=== PATIENT | female | born 1975 | race African-American/Black ===

== ENCOUNTER 2016-11-09 17:03 | Emergency (ER) | payer OTHER ==
[~2016-11-09] VITALS: Ht 175.3 cm; Wt 101.4 kg
[2016-11-09 17:06] VITALS: BP 140/90; PULSE 86; RESP 16; O2SAT 100
--- NOTE | 2016-11-09 18:18 | ED.REPORT ---
HPI-Preg Under 20 Weeks Date of Service Nov 09, 2016 ED Provider: Desi Foley History of Present Illness: blood in urine this afternoon. numbers have doing well. RH negative. corrina saw on Monday, spoke with him on Monday. light pink in color. 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 Ambulatory Status Independent Review of Systems Basic Review of Systems ENT: Hearing NL Psychiatric: Normal thought content Physical Exam Initial Vital Signs Vital Signs (First) Date Time Temp Pulse Resp B/P Pulse Ox O2 Delivery O2 Flow Rate FiO2 11/09/16 17:06 36.6 86 16 140/90 100 Room Air Initial VS: Reviewed, Vital signs normal Head / Eyes: Atraumatic, Normocephalic, PERRL ENT: Mucous membranes moist, Conjunctiva normal, No scleral icterus Neck: Supple, Non-tender, Full range of motion Respiratory: Breath sounds normal, Clear to auscultation, No respiratory distress Cardiovascular: Regular rate & rhythm, Heart sounds normal, Intact distal pulses Back: No CVA tenderness Lymphatic: No lymphadenopathy Extremities: Vascular intact, Neuro intact, No swelling, No tenderness Skin: Warm, Dry, No cyanosis Neurologic: Alert, Oriented, Nonfocal Psychiatric: Mood/affect normal, Behavior normal, Normal thought content General/Constitutional: Awake, Alert, No acute distress, Well appearing, Well developed, Well hydrated Abdomen: Atraumatic, Soft, Non-tender Female Genitourinary: Exam deferred Respiratory / Chest: Atraumatic, Breath sounds NL, Breath sounds = bilat, No respiratory distress Cardiovascular: Heart rate NL, Regular rhythm, Heart sounds NL, No gallop Interpretation & Diagnostics Lab Results Interpretation Result Diagram: 11/09/16199911/09/161999 Test 11/09/16 17:35 11/09/16 18:35 11/09/16 20:00 Hold Urine Received (Received) Urine Color Yellow (YELLOW) Urine Appearance Hazy (CLEAR,HAZY) Urine pH 6.0 (5.0-8.0) Urine Specific [place] 1.010 (1.003-1.035) Urine Protein Negativemg/dL (NEG,TRACE) Urine Glucose (UA) Negativemg/dL (NEGATIVE) Urine Ketones Negativemg/dL (NEGATIVE) Urine Occult Blood Large (NEGATIVE) Urine Nitrite Negative (NEGATIVE) Urine Bilirubin Negative (NEGATIVE) Urine Urobilinogen Normalmg/dL (NORMAL) Urine Leukocyte Esterase Negative (NEGATIVE) Urine RBC 0-2/hpf (0-2) Urine WBC 0-5/hpf (0-5) Urine Epithelial Cells Moderate/hpf (NONE-MOD) Urine Crystals None seen (NONE SEEN) Urine Bacteria Few/hpf (NONE-FEW) Urine Hyaline Casts None/lpf (NONE) Urine Granular Casts None seen (NONE SEEN) Urine Waxy Casts None seen (NONE SEEN) Urine Red Blood Cell Casts None seen (NONE SEEN) Urine White Blood Cell Casts None seen (NONE SEEN) Urine Mucus None seen (None Seen) Urine Trichomonas None seen (NONE SEEN) Urine Yeast None (NONE SEEN) Urinalysis Comment None Urine Culture Reflexed Not indicated White Blood Count 8.6th/mm3 (3.8-10.1) Red Blood Count 4.88mil/mm3 (3.90-5.20) Hemoglobin 10.9g/dL (12.0-15.6) Hematocrit 33.9% (35.0-46.0) Mean Corpuscular Volume 69.5fL (81-100) Mean Corpuscular Hemoglobin 22.3pg (27.0-35.0) Mean Corpuscular Hemoglobin Concent 32.2% (32.0-37.0) Red Cell Distribution Width 21.6% (12.3-15.4) Platelet Count 289bil/L (150-400) Neutrophils (%) (Auto) 54.4% (40-74) Lymphocytes (%) (Auto) 34.6% (14-46) Monocytes (%) (Auto) 6.6% (4-12) Eosinophils (%) (Auto) 3.8% (0-5) Basophils (%) (Auto) 0.5% (0-3) Sodium Level 137mEq/L (134-144) Potassium Level 3.7mEq/L (3.5-5.2) Chloride Level 100mEq/L (97-108) Carbon Dioxide Level 22mmol/L (18-29) Blood Urea Nitrogen 10mg/dL (6-20) Creatinine 0.70mg/dL (0.57-1.00) Estimat Glomerular Filtration Rate 120mL/min (>59) Glucose Level 89mg/dL (60-99) Calcium Level 9.2mg/dL (8.5-10.1) Total Bilirubin 0.5mg/dL (0.0-1.2) Aspartate Amino Transf (AST/SGOT) 20U/L (0-50) Alanine Aminotransferase (ALT/SGPT) 16U/L (0-32) Alkaline Phosphatase 57U/L (25-150) Total Protein 6.9g/dL (6.4-8.4) Albumin 4.0g/dL (3.4-5.0) HCG Beta Subunit [id number]/mL Hold Talavera Top Tube Received (Received) US Focused OB US does show a pole with a heart rate of 119 Re-Eval/Medical Decision Med Decision/Clinical Course 40 year old female presentd for evualtion of first trimester spotting. Labs are normal. Ultrasound shows a heart rate of 119. Discussed with Dr. Moreno, patient to call tomorrow for follow up. provided mini rhogam Discharge & Departure Primary Impression: Spotting affecting in first trimester Disposition: Home Additional Instructions: The ultrasound does show a pole with a heart rate of 119. It also shows a perigestational bleed. You have been given a mini rhogam injection [place] [address] Roche for follow up. Return with any concerns. Referrals: Jeanne Ruelas MD (PCP) Mikel Moreno MD EDSupervising Provider for APC: Basilio Escudero MD copies to: Mikel Moreno MD, Sue ARNP Nov 09, 2016 18:18
[2016-11-09 18:51] LABS: APPEARANCE,URINE HAZY (CLEAR,HAZY); COLOR,URINE YELLOW (YELLOW); OCCULT BLOOD,URINE LARGE (NEGATIVE); UROBILINOGEN,URINE NORMAL (NORMAL)
[2016-11-09 20:14] LABS: BASOPHILS % (AUTO) 0.5 % (0-3); EOSINOPHILS % (AUTO) 3.8 % (0-5)
[2016-11-09 20:17] LABS: MONOCYTES % (AUTO) 6.6 % (4-12); Mean Corpuscular Hemoglobin 22.3 pg (27.0-35.0); Mean Corpuscular Volume 69.5 fL (81-100); NEUTROPHILS % (AUTO) 54.4 % (40-74); Platelet Count 289 bil/L (150-400)
[2016-11-09] MEDS ORDERED: Rho(D) Immune Globulin 50 mCg Syringe IM ONE (21:05)
[2016-11-09 22:00] VITALS: BP 112/77; PULSE 80; RESP 20; O2SAT 96
--- NOTE | 2016-11-10 09:14 | DRSVH ---
PROCEDURE: US OB<14 WKS+OB TRANSVAG INDICATIONS: bleeding today OUTSIDE/PRIOR DATING DATA: Last menstrual period (LMP): 09/21/16. LMP-based estimated date of delivery (RETA): 06/28/17. First dating scan (date and location): 11/03/16. Estimated date of delivery (ERTA) from first dating scan: 06/24/17.. TECHNIQUE: Real-time scanning was performed of the fetus and maternal pelvic organs, with image documentation. Endovaginal scanning was also performed to better visualize the fetus and maternal ovaries. COMPARISON: [facility] Ultrasound, US, US OB<14 WKS+OB TRANSVAG, 11/03/2016, 9:37. 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 Mild irregularity involving the gestational sac with echogeni c focus which may represent a small bleed. There also is a small avinash-gestational sac bleed measurin g 2.2 x 0.8 x 1.9 cm Measurement variability in dating: +/- 4 weeks by LMP, +/- 7 days by mean sac diameter (use before 6 weeks gestation if crown-rump length not able to be measured), +/- 5 days by crown-rump length (6-12 weeks gestation). Maternal organs: Calcification adjacent to the left ovary redemonstrated. Calcified fibroid present measuring 2.4 x 2.1 x 2.1 cm IMPRESSION: 1. 6 week 1 day single living IUP. 2. Small echogenic focus present which may represent a small bleed versus gestational sac irregulari ty and there also is a small perigestational sac bleed present. Followup recommended. 3. Calcification adjacent to the left ovary redemonstrated. Followup is recommended. Dictated by: Eduardo BENNETT Interpreted: Li Ferguson MD on 11/10/2016 at 9:06 Transcribed by: FATUMA on 11/10/2016 at 9:13 Approved by: Li Ferguson MD, PhD on 11/10/2016 at 16:49
[2016-12-13] MEDS ORDERED: FERR325T39 PO (16:30)
[2016-12-13] MEDS ORDERED: HYDR-4003 PO (16:30)
== END 2016-11-09 22:00 | disposition home or self-care (01) ==
LOC: SED 17:03
DX: O26.851 Spotting complicating pregnancy, first trimester (principal); Z3A.01 Less than 8 weeks gestation of pregnancy; Z88.0 Allergy status to penicillin
CPT/HCPCS: 36415; 76801; 76817; 80053; 81000; 81025; 84702; 85025; 96372; 99284; J2788

== ENCOUNTER 2016-11-13 17:24 | Emergency (ER) | payer OTHER ==
[~2016-11-13] VITALS: Ht 175.3 cm; Wt 100.0 kg
[2016-11-13 17:25] VITALS: BP 120/79; PULSE 88; RESP 12; O2SAT 100
--- NOTE | 2016-11-13 19:53 | PCM.EDPN ---
ED Note Date of Service Nov 13, 2016 This patient was assigned to me though I never saw her. test and the urine is positive urinalysis is negative for overt UTI. Jose Maria Platt MD Nov 13, 2016 19:53
[2016-12-13] MEDS ORDERED: HYDR-4003 PO (16:30)
[2016-12-13] MEDS ORDERED: FERR325T39 PO (16:30)
== END 2016-11-13 19:27 | disposition left against medical advice (07) ==
LOC: SED 17:24
DX: Z53.21 Procedure and treatment not carried out due to patient leaving prior to being seen by health care provider (principal)

== ENCOUNTER 2016-11-25 08:14 | Emergency (ER) | payer OTHER ==
[~2016-11-25] VITALS: Ht 175.3 cm; Wt 102.3 kg
[2016-11-25 08:19] VITALS: BP 115/70; PULSE 84; RESP 14; O2SAT 100
--- NOTE | 2016-11-25 08:29 | ED.REPORT ---
HPI-Preg Under 20 Weeks Date of Service Nov 25, 2016 ED Provider: Smair Pop DO The patient is a 40 year old female who presents to the female due to one episode of vaginal bleeding earlier this morning. She is in her first trimester of , estimated 11 weeks. She woke up this morning, urinated, wiped herself and saw a quarter sized clot of blood. Yesterday evening she felt a sharp pain across her lower abdomen and currently complains of mild lower back pain. She was recently diagnosed with vaginitis and the medication she was on made her nauseous and vomit. She couldn't keep any food down. She stopped taking the medicine last night. She has bilateral ovarian cysts. She had her first OB appointment on Monday and the baby's heartbeat was 171. At this time, a placenta previa was found. She denies dysuria and hematuria. This is her 5th , all previous pregnancies have been healthy and full term. Nursing Notes Stated Complaint: 11 WKS AND BLEEDING Chief Complaint: Female Abdominal Pain Nursing Notes Reviewed: Yes Allergies: Coded Allergies: Penicillins (Verified Allergy, Severe, chest tightness, 11/13/16) Scheduled Clindamycin (Clindamycin) 300 Mg Capsule 300 MG PO BID General Time Seen by Provider: 08:20 Chief Complaint Vaginal bleeding Context: : Known 1st trim Hx Obtained From: Patient Arrived By: Walk-in Onset Occurred: Yesterday Symptom Duration: Since onset Quality: Painful, Sharp Radiation: : Abdomen lower Severity: Current: No pain currently Recent Healthcare: Recent doctor visit Past Medical History Past Medical History ovarian cysts placenta previa Past Surgical History denies Smoking History Never Smoker Social History Alcohol Use: Denies alcohol use Drug Use: Denies drug use 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 Physical Exam Initial Vital Signs Vital Signs (First) Date Time Temp Pulse Resp B/P Pulse Ox O2 Delivery O2 Flow Rate FiO2 11/25/16 08:19 36.8 84 14 115/70 100 Room Air Initial VS: Reviewed Head / Eyes: Atraumatic, Normocephalic, PERRL ENT: Mucous membranes moist, Conjunctiva normal Respiratory: Breath sounds normal, Clear to auscultation, No respiratory distress Cardiovascular: Regular rate & rhythm, Heart sounds normal, Intact distal pulses Extremities: Vascular intact, Neuro intact, No swelling, No tenderness Skin: Warm, Dry General/Constitutional: Awake, Alert, Cooperative, Not toxic appearing Abdomen: Atraumatic, Soft, Non-tender, No guarding, No rebound Female Genitourinary: Exam deferred : movement present Interpretation & Diagnostics Lab Results Interpretation Test 11/25/16 09:25 Urine Color Dark yellow (YELLOW) Urine Appearance Hazy (CLEAR,HAZY) Urine pH 5.5 (5.0-8.0) Urine Specific [place] 1.030 (1.003-1.035) Urine Protein Negativemg/dL (NEG,TRACE) Urine Glucose (UA) Negativemg/dL (NEGATIVE) Urine Ketones Negativemg/dL (NEGATIVE) Urine Occult Blood Large (NEGATIVE) Urine Nitrite Negative (NEGATIVE) Urine Bilirubin Negative (NEGATIVE) Urine Urobilinogen Normalmg/dL (NORMAL) Urine Leukocyte Esterase Trace (NEGATIVE) Urine RBC 0-2/hpf (0-2) Urine WBC 0-5/hpf (0-5) Urine Epithelial Cells Moderate/hpf (NONE-MOD) Urine Crystals None seen (NONE SEEN) Urine Bacteria Few/hpf (NONE-FEW) Urine Hyaline Casts None/lpf (NONE) Urine Granular Casts None seen (NONE SEEN) Urine Waxy Casts None seen (NONE SEEN) Urine Red Blood Cell Casts None seen (NONE SEEN) Urine White Blood Cell Casts None seen (NONE SEEN) Urine Mucus Present (None Seen) Urine Trichomonas None seen (NONE SEEN) Urine Yeast None (NONE SEEN) Urinalysis Comment None Urine Culture Reflexed Indicated Re-Eval/Medical Decision Med Decision/Clinical Course Single episode of a single vaginal blood clot, no signs of urinary tract infection, no ongoing pain, benign abdominal exam, reassuring vital signs, patient is Rh- however has had a very recent RhoGAM injection and does not seem like it is indicated again. Bedside ultrasound was performed as the nurse was not able to find heart tones, I think this is identified within the uterus with positive heart tones. Overall this may be a threatened miscarriage, patient has had all questions answered, reassurance and education given. Return and follow-up precautions given as well. It should be noted that she was treated with Flagyl for BV and developed severe nausea, this was switched over to clindamycin 300 mg twice a day prescribed during this visit. Re-Evaluation/Progress : Time of Eval: 09:05 Re-Evaluation/Progress Note: Bedside ultrasound performed. No acute findings. Counseled Regarding: Diagnosis, Lab results, Need for follow-up, When/why to return to ED Discharge & Departure Primary Impression: Threatened miscarriage in early Disposition: Home Discharge Condition All VS Reviewed: Yes Condition: Stable Additional Instructions: We can see that your baby is in the uterus and that it has a heartbeat on ultrasound. However, we cannot exclude that this is very very early signs of an impending miscarriage. For this reason we call it a threatened miscarriage. I am sending you home with a prescription for clindamycin, 300 mg 2x/day, to help with your bacterial vaginosis. There are potential side effects, but generally it is well tolerated. If you are having diarrhea or a high fever, discontinue the antibiotic use. 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 Return to the Emergency Department for any new or worsening symptoms. Congratulations on your ! Referrals: Jeanne Ruelas MD (PCP) Scribe Attestation Portion of this note were transcribed by Soraya Kelly. I, Dr. Pop, personally performed the history, physical exam, and medical decision-making: I reviewed and confirmed the accuracy for the information in the transcribed note. Signed by: shyann Crabtree, 11/25/16 1000 copies to: Jeanne Ruelas MD, Timothy S DO Nov 25, 2016 08:29 Soraya Kelly Nov 25, 2016 08:45
[2016-11-25] MEDS ORDERED: CLIN-78 PO (09:33)
[2016-11-25 09:50] LABS: APPEARANCE,URINE HAZY (CLEAR,HAZY); COLOR,URINE DARK YELLOW (YELLOW); PH,URINE 5.5 (5.0-8.0)
[2016-11-25 09:51] LABS: OCCULT BLOOD,URINE LARGE (NEGATIVE); UROBILINOGEN,URINE NORMAL (NORMAL)
[2016-12-13] MEDS ORDERED: HYDR-4003 PO (16:30)
[2016-12-13] MEDS ORDERED: FERR325T39 PO (16:30)
== END 2016-11-25 10:13 | disposition home or self-care (01) ==
LOC: SED 08:14
DX: O20.0 Threatened abortion (principal); Z3A.11 11 weeks gestation of pregnancy; Z88.0 Allergy status to penicillin

== ENCOUNTER 2016-11-28 07:27 | Emergency (ER) | payer OTHER ==
[~2016-11-28] VITALS: Ht 175.3 cm; Wt 100.0 kg
[~2016-11-28 07:27] MED LIST: CLIN-78 PO
[2016-11-28 07:30] VITALS: BP 128/86; PULSE 87; RESP 18; O2SAT 100
--- NOTE | 2016-11-28 07:35 | ED.REPORT ---
HPI-Preg Under 20 Weeks Date of Service Nov 28, 2016 ED Provider: Dr. 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 Associated symptoms include gas, cramping and abdominal pain, headache, lightheaded. Pt says she believe she has had a miscarriage. She woke up at 0200 due to cramping and bleeding, went to the bathroom and passed excessive blood and a small sac of tissue which she brought into the ED with her. She is known RH negative and has had a Rhogam shot recently. The bleeding has improved at the ED. She had a miscarriage 2 years ago, and reports that there is much more bleeding with this miscarriage. Pt was seen at the ED 3 days ago for vaginal spotting and a threatened miscarriage. Nursing Notes Stated Complaint: POSSIBLE MISCARRIAGE Chief Complaint: Female Abdominal Pain Nursing Notes Reviewed: Yes Allergies: Coded Allergies: Penicillins (Verified Allergy, Severe, chest tightness, 11/13/16) Scheduled Clindamycin (Clindamycin) 300 Mg Capsule 300 MG PO BID General Time Seen by Provider: 07:49 Chief Complaint Vaginal bleeding Context: : Known 1st trim Hx Obtained From: Patient Arrived By: Walk-in Onset Occurred: Just prior to arrival Symptom Duration: Since onset Location: : Abdomen lower Quality: Painful Severity: Current: No pain currently Severity: Maximum: Mild Recent Healthcare: Recent doctor visit Similar Sx Previous: Yes Past Medical History Past Medical History ovarian cysts placenta previa known RH negative and has had a Mark shot recently (11/28/16) Past Surgical History denies Smoking History Never Smoker Social History Alcohol Use: Denies alcohol use Drug Use: Denies drug use Other Social History: Good social support, 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 Physical Exam Physical Exam Notes: Initial Vital Signs Vital Signs (First) Date Time Temp Pulse Resp B/P Pulse Ox O2 Delivery O2 Flow Rate FiO2 11/28/16 07:30 36.3 87 18 128/86 100 11/28/16 09:42 Room Air Initial VS: Reviewed Head / Eyes: Atraumatic, Normocephalic, PERRL ENT: Mucous membranes moist, Conjunctiva normal Respiratory: Breath sounds normal, Clear to auscultation, No respiratory distress Cardiovascular: Regular rate & rhythm, Heart sounds normal Extremities: Vascular intact, No swelling, No tenderness Skin: Warm, Dry Psychiatric: Mood/affect normal, Behavior normal General/Constitutional: Awake, Alert, Well nourished, Cooperative Distress / Hydration: Positive: Distress mild Behavior: Positive: Anxious, Tearful Abdomen: Atraumatic, Soft, Non-tender Female Genitourinary: 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 Markedly thickened, heterogeneous endometrium measuring 37.7 cm, which demonstrates a vascularity on Doppler ultrasound. Cannot rule out retained product of conception. 2. A intramural fibroid in the right anterior wall. Dictated by: Laron Banda M.D. on 11/28/2016 at 9:20 Approved by: Laron Banda M.D. on 11/28/2016 at 9:32 Exam Performed by: Radiologist Re-Eval/Medical Decision Med Decision/Clinical Course Completed miscarriage, briefly consulted with BAG LINER who agrees with discharge. Patient has already received RhoGAM just a few weeks ago. Will discharge with strict return and follow-up precautions Re-Evaluation/Progress : Time of Eval: 10:09 Re-Evaluation/Progress Note: Pt rechecked. Informed pt of US results and plan for treatment. F/U and RTER warnings given. Pt understands and agrees with plan. Consultation : Referral / Consult Name: Joshua Donovan MD Call Returned at: 09:46 Certified Nuclear Medicine Technologist: Agrees with eval, Agrees with plan Note: Consult w/ OBGYN. Case discussed. Dr. Donovan agrees with plan and advises to give a dose of Methergine. Counseled Regarding: Diagnosis, Lab results, Need for follow-up, When/why to return to ED Discharge & Departure Primary Impression: Complete miscarriage Disposition: Home Discharge Condition All VS Reviewed: Yes Condition: Stable Additional Instructions: I am sorry you have had a miscarriage. I am sending you home with a pill called Methergine. This will ensure that everything is removed. Use Tylenol and Ibuprofen for pain. Schedule an appointment with an Obgyn as needed. I will give you Dr. Ellis's number for further care. Return to the Emergency Department for any new or worsening symptoms including heavy bleeding, high fever, severe pain, lightheadedness. Referrals: Jeanne Ruelas MD (PCP) Joshua Donovan MDibnaga Attestation Portion of this note were transcribed by Soarya Kelly. I, Dr. Pop, personally performed the history, physical exam, and medical decision-making: I reviewed and confirmed the accuracy for the information in the transcribed note. Signed by: shyann Crabtree, 11/28/16 1000 copies to: Joshua Donovan MD; Jeanne Ruelas MD, Timothy S DO Nov 28, 2016 07:35 Soraya Kelly Nov 28, 2016 07:57
--- NOTE | 2016-11-28 09:33 | DRSVH ---
PROCEDURE: US PELVIC SONOGRAM + TRANSVAGINAL SONOGRAM INDICATIONS: Suspect retained POC. TECHNIQUE: Real-time scanning was performed of the pelvic organs, with image documentation. Additional endovagi nal scanning was necessary due to incomplete visualization of the adnexal and endometrial structures by transabdominal scanning. COMPARISON: None. FINDINGS: (orthogonal measurements) Uterus size: 13.38 cm, 7.37 cm, 8.61 cm Endometrium thickness: 3.48 cm Right ovary size: 2.92 cm, 4.81 cm, 2.13 cm Left ovary size: 1.90 cm, 4.72 cm, 1.54 cm Transabdominal scanning: Limited scanning through the kidneys shows no hydronephrosis. No pathologi c free abdominal or pelvic fluid. Endovaginal scanning: Uterus: Uterus is prominent in size and appearance. Endometrium is markedly thickened and heterogen eous in echotexture measuring 37.7 cm and demonstrates internal vascularity. There is a 1.6 x 2.6 x 2 .5 cm intramural fibroid in the anterior right uterine wall. Ovaries: Within normal physiologic limits. IMPRESSION: 1. Markedly thickened, heterogeneous endometrium measuring 37.7 cm, which demonstrates a vascularity on Doppler ultrasound. Cannot rule out retained product of conception. 2. A intramural fibroid in the right anterior wall. Dictated by: Laron Banda M.D. on 11/28/2016 at 9:20 Approved by: Laron Banda M.D. on 11/28/2016 at 9:32
[2016-11-28 09:42] VITALS: BP 95/59; PULSE 74; RESP 18; O2SAT 100
[2016-11-28 10:34] VITALS: BP 95/59; PULSE 74; RESP 18; O2SAT 100
[2016-12-13] MEDS ORDERED: FERR325T39 PO (16:30)
[2016-12-13] MEDS ORDERED: HYDR-4003 PO (16:30)
== END 2016-11-28 10:35 | disposition home or self-care (01) ==
LOC: SED 07:27
DX: O03.9 Complete or unspecified spontaneous abortion without complication (principal); Z3A.10 10 weeks gestation of pregnancy; Z88.0 Allergy status to penicillin

== ENCOUNTER 2016-12-15 08:03 | Day surgery (SDC) | payer OTHER ==
[2016-12-15] VITALS (7 sets, daily range): BP systolic 107–121; BP diastolic 54–64; PULSE 83–99; RESP 12–17; O2SAT 94–100
[~2016-12-15] VITALS: Ht 175.3 cm; Wt 102.9 kg
[~2016-12-15 08:03] MED LIST changes: +FERR325T39 PO; +HYDR-4003 PO
[2016-12-15] MEDS ORDERED: Propofol 10,000 mCg/mL 20 mL Inj ONE (08:04)
[2016-12-15] MEDS ORDERED: fentaNYL-PF 50 mCg/mL 2 mL Inj ONE (08:04)
[2016-12-15] MEDS ORDERED: Succinylcholine Chloride 20 mg/mL 5 mL Inj ONE (08:04)
[2016-12-15] MEDS ORDERED: Ondansetron 2 mg/mL 2 mL Inj ONE (08:04)
[2016-12-15] MEDS ORDERED: Dexamethasone 4 mg/mL Inj ONE (08:04)
--- NOTE | 2016-12-15 08:24 | PCM.HPANE ---
Patient Data Date of Service: Dec 15, 2016 Surgeon Admitting Provider: Attending Provider:Mikel Moreno MD Primary Care Physician:Cristiana Other Provider:Luis Angel Key Anesthesia Reason for Visit Missed Ab Ht/WT & BMI Height (Feet): 5 Height (Inches): 9 Weight (Kilograms): 103.87 Body Mass Index 33.00 Allergies Coded Allergies: Penicillins (Verified Allergy, Severe, chest tightness, 11/13/16) lactose (Verified Allergy, Unknown, 12/13/16) diphenhydramine (Verified Adverse Reaction, Unknown, "passed out", 12/13/16 ) pt states this was one time reaction during iron infusion- had medication since with no problems. Believes it was given too fast Past Anesthesia History Anesthesia History: Denies:: Abnormal Airway, Anesthesia Reactions, Difficult Intubation, Fam Anesthesia Reaction, Malignant Hyperthermia Diabetes History Hx Diabetes?: No MRSA MRSA: No Medications Hypertension Medication: No Home Meds Incl Beta Tony: No Reported Medications Ferrous Sulfate (Iron)325 Mg [id number] Mg PO DAILY 12/13/16 Discontinued Reported Medications Hydrocodone-Acetaminophen 5-325 mg 1 Each Tablet1 Tablet PO Q6H PRN For Pain Ref 0 12/13/16 Discontinued Scripts Clindamycin 300 Mg [id number] Mg PO BID #14 CAPSULE Prov:Samir Pop DO 11/25/16 History History of ENT Problems?: No HEENT History: Denies:: Abnormal Airway Cataracts Difficult Intubation Dysphagia Glaucoma Hearing Problem Sinus Problem TMJ Denture Type: None Teeth Condition: Within Normal Limits Hx of Heart Problems?: No Cardiovascular History: Denies:: AICD Abdominal Aortic Aneurism Atrial Fibrillation Chest Pain Congestive Heart Failure Coronary Artery Disease Edema Heart Murmur Hypertension Irregular Heartbeat Pacemaker Peripheral Vascular Rheumatic Fever Thrombophlebitis Other Cardiac History: hx of prior iron infusions for anemia Hx of Respiratory Problem?: No Respiratory History: Denies:: Asthma COPD Emphysema Oxygen Administration Pneumonia Tuberculosis Use of C-PAP Machine Use of Inhalers / NEBS Hx Neurologic Problems?: Yes Neurological History: Positive for:: Seizures (epilepsy from age 4mos to age 4 - none since "hereditary") Denies:: CVA Headaches Multiple Sclerosis Parkinson's Disease Hx of GI Problems?: No Hx of Problems?: No Genitourinary History: Denies:: Kidney Stones Urinary Tract Infection Female Hx: Denies:: Problems with Breasts? Skin History: Denies:: History Skin Disorders? Pressure Ulcers Hx Musculoskeletal Problems?: No Musculoskeletal History: Denies:: Fibromyalgia Joint Replacement Musculoskeletal Trauma Osteoarthritis Hx of Psycho/Social Problems?: No Hx Surgeries?: Yes (D+C) Hx Any Other Health Problems?: Yes Other History: Denies:: Cancer Thyroid Disease History Blood Transfusions: Positive for:: Accept Blood Products? Denies:: Blood Transfusions (would accept blood products only, not whole blood) Hx Diabetes: No Hx Alcohol Use: NoHx Substance Use: No Smoking Status: Never Smoker Have You Smoked inLast 12 mo: No Stop/Bang Treated for Sleep Apnea?: No Do You Have a CPAP Machine?: No S-Snoring: Do You Snore Loudly: No T-Tired: feel tired, fatigued: No O-Obsered: Observed not breath: No P-Blood Pressure: treated: No B- Body Mass Index > 35 kg/m2: No A- Age over 50: No N- Neck Large Circumference: No G- Gender Male: No MELBA Risk Assessment: Low Risk, <3 Yes Risk Assessment Category Category 1A: Patient has history of documented sleep apnea, and HAS NOT received any narcotic, sedative or anesthesia administration during this stay. Category 1B: Patient has history of documented sleep apnea, and HAS received any narcotic , sedative or anesthesia administration during this stay Category 2: Patient has SUSPECTED Obstructive Sleep Apnea, and HAS received any narcotic , sedative or anesthesia administration during this stay. Category 3: Patient has SUSPECTED Obstructive Sleep Apnea and HAS NOT received narcotic, sedative or anesthesia administration during this stay. Category 4: Outpatient in Procedural Areas with known sleep apnea or who screen positive for High Risk via the STOP/BANG questionnaire. Exam Exam General Appearance: Alert, Oriented X3, Cooperative, No Acute Distress HEENT/AIRWAY: MP 2 Lungs: Clear to Auscultation, Normal Air Movement Heart: Exam Unremarkable, Regular Rate/Rhythm, No Murmurs/Rubs/Gallops Plan Impression Patient chart reviewed, patient interviewed and anesthestic plan with risks, benefits, and alternatives discussed, and informed consent obtained. ASA Physical Status: ASA2 Mod Systemic Disease Anesthetic Plan: GA, MAC Bene/Risks/Altern/Consents: Yes HP Complete Prior to Induction: Yes Chu Snow DO Dec 15, 2016 08:24
[2016-12-15] MEDS: Lactated Ringer's 1,000 ML IV SCH ×2 (08:58→09:05)
[2016-12-15] MEDS ORDERED: oxyCODONE-Acetamin 5-325 mg Tablet PO PRN (09:40)
[2016-12-15] MEDS ORDERED: diphenhydrAMINE 25 mg Capsule PO PRN (09:40)
[2016-12-15] MEDS ORDERED: Ondansetron 2 mg/mL 2 mL Inj IVPUSH PRN (09:40)
--- NOTE | 2016-12-15 09:41 | PCM.DIMED ---
Discharge Instructions Date of Service Dec 15, 2016 Dates of Hospitalization Diet No restrictions Activity No restrictions Call your provider Fever or Chills, Shortness of breath, Bleeding, Chest pain, Vomitting, Excessive diarrhea Patient Instructions Follow-up with PCP in: 2 weeks Mikel Moreno MD Dec 15, 2016 09:41
--- NOTE | 2016-12-15 09:59 | PCM.ANEP1 ---
Post Anesthesia Phase 1 PACU Phase 1 Assessment Date of Service: Dec 15, 2016 Vital Signs Vital Signs Date Time Temp Pulse Resp B/P Pulse Ox O2 Delivery O2 Flow Rate FiO2 12/15/16 09:50 98 17 109/58 100 Room Air 12/15/16 09:45 37.3 99 14 107/62 98 Room Air 12/15/16 08:29 36.4 83 12 121/63 99 Room Air Anesthetic Administered: GA Level of Alertness: Sleepy, easy to arouse JOVEL's with Equal Strength: Yes Pain: No Nausea or Vomiting: No Cardiovascular Function and Hy: Yes Oxygen Delivery: Room Air, Simple Mask (6l) Lungs: Clear to Auscultation, Normal Air Movement Dermatome Level: Full Sensation Complications: No Follow up Care: No Chu Snow DO Dec 15, 2016 09:59
--- NOTE | 2016-12-15 10:11 | OP ---
[address] [address] OPERATIVE REPORT PATIENT: STEVE LOUIS : 1975 MR#: [id number] ADMIT: 12/15/2016 JOB ID: [id number] DATE OF SURGERY: 12/15/2016 PROCEDURE: Suction dilatation and curettage. PREOPERATIVE DIAGNOSIS(ES): Spontaneous incomplete . POSTOPERATIVE DIAGNOSIS(ES): Spontaneous incomplete . SURGEON: Dr. Mikel Moreno ANESTHESIA: General. ESTIMATED BLOOD LOSS: 50 mL. ESTIMATED FLUIDS: 700 mL of lactated Ringer's. URINE OUTPUT: 100 mL of urine. COMPLICATIONS: None. PROCEDURE: The patient was brought to the operating room, where she underwent general anesthesia without difficulty. The patient received preoperative antibiotics. She was placed in a dorsal lithotomy position using Bubba stirrups. She was prepped and draped in the usual surgical fashion. Time-out was performed verifying correct patient, correct procedure. Two Frye retractors were placed into the vagina. The cervix was visualized and grasped with a tenaculum. It was dilated using Hegar dilators to a size of 11 mm. Using a 10 mm curved suctioning curette, suctioning D and C was performed and the specimen products of conception were sent to Pathology. Then with a mid sized sharp curette, sharp curettage of the cornua of the uterus on both sides was done to reassure that all the products of conception were removed. Good hemostasis was achieved. The tenaculum was removed, oozing of blood from the tenaculum insertion points was controlled with application of silver nitrate sticks. Bimanual examination confirmed firm uterus, good hemostasis. The patient was repositioned into the supine position. She tolerated the procedure well and was transferred to the recovery room in stable condition.
--- NOTE | 2016-12-19 14:19 | PATH ---
SURGICAL PATHOLOGY Attending Physician:Mikel Moreno MD CASE STATUS: Signed Out PATIENT NAME: STEVE LOUIS PID: [id number] : 1975 DATE COLLECTED:12/15/2016 20:58 SPECIMEN: Products of conception CLINICAL HISTORY: MISSED INCOMPLETE 1). PRODUCTS OF CONCEPTION FINAL DIAGNOSIS: 1.PRODUCTS OF CONCEPTION: PARTIALLY NECROTIC IMMATURE PLACENTAL TISSUE AND DECIDUAL TISSUE. ICD10 CODE O02.1 GROSS DESCRIPTION: The specimen is received in one formalin filled container labeled with the patient's name, sublabeled "products of conception" and consists of multiple portions of meléndez-sellers friable tissue which aggregate to 5.0 x 3.0 x 0.7 CM. No grossly recognizable parts are observed. The specimen is entirely submitted in 4 cassettes. 12/15/2016 [facility] MICRO DESCRIPTION: See diagnosis. ICD-9 CODES: CPT CODES: 1: 91322 Electronically Signed Out Basilio Monge MD [facility] Pathology [facility] [address], [place] [address] Technical component performed at [facility], [facility] [address], [place], [address]
== END 2016-12-15 23:59 | disposition home or self-care (01) ==
LOC: SAS 08:03
PROVIDERS: ATTEND Legal Medicine
DX: O03.4 Incomplete spontaneous abortion without complication (principal)
CPT/HCPCS: 59812; J7120